=== PATIENT | female | born 1975 | race Native Hawaiian/Other Pacific Islander ===

== ENCOUNTER 2018-09-18 09:42 | Outpatient (CLI) | payer OTHER | END 2018-09-18 09:43 | disposition home or self-care (01) | LOC: C.PAT 09:42 | DX: Z01.818 Encounter for other preprocedural examination (principal); D17.0 Benign lipomatous neoplasm of skin and subcutaneous tissue of head, face and neck ==

== ENCOUNTER 2018-10-07 08:03 | Day surgery (SDC) | payer OTHER ==
[2018-09-18 10:03] VITALS: BMI 27.0
[2018-10-07] MEDS ORDERED: Lidocaine Hydrochloride 20 ML INJ ONE (09:49)
[2018-10-07] MEDS ORDERED: Bupivacaine-Epi 0.5%-1:200,000 PF Inj ONE (09:50)
[2018-10-07] MEDS ORDERED: ceFAZolin 1 gm in NS 2 GM/200 ML BAG IVPB ONE (09:50)
[2018-10-07] MEDS ORDERED: Midazolam 2 MG/2 ML VIAL ONE (10:57)
[2018-10-07] MEDS ORDERED: Propofol 10 mg/ml Inj (20 ML) ONE ×3 (11:00→11:41)
[2018-10-07] MEDS ORDERED: ePHEDrine 50 mg/ml Inj ONE (12:01)
[2018-10-07] MEDS ORDERED: HYDROmorphone 0.5 mg/0.5 ml ISec IVP PRN (12:07)
--- NOTE | 2018-10-07 12:08 | PCM.SURG1 ---
Surgeon's Initial Post Op Note - Surgeon's Notes Surgeon: MD Rafa Glass Artist: Elieser PGY3. MS [email or web address] Type of Anesthesia: General Endo (PY) Pre-Operative Diagnosis: Posterior scalp lipoma Operative Findings: Posterior scalp lipoma Post-Operative Diagnosis: Posterior scalp lipoma Operation Performed: Excision of posterior scalp lipoma Specimen/Specimens Removed: Posterior scalp lipoma Estimated Blood Loss: EBL {In ML}: 10 Date of Surgery/Procedure: 10/07/18 Time of Surgery/Procedure: 11:00
[2018-10-07 15:04] VITALS: BP 100/58; PULSE 67; RESP 15; TEMP 97.9; O2SAT 99
--- NOTE | 2018-10-11 03:37 | OP ---
PROCEDURE DATE: 10/07/2018 PREOPERATIVE DIAGNOSES: 1. Large lipoma of the posterior scalp. 2. Extensive redundant skin and subcutaneous tissue of the scalp due to large lipoma. POSTOPERATIVE DIAGNOSES: 1. Large lipoma of the posterior scalp. 2. Extensive redundant skin and subcutaneous tissue of the scalp due to large lipoma. PROCEDURES DONE: 1. Excision of the large lipoma of the scalp and the neck area, approximately 8 x 6 cm in size. 2. Excision of the redundant skin and subcutaneous tissue of the scalp and neck area at the lipoma site, approximately 6 x 4 cm in size. 3. Complex layered closure of the wound of scalp and neck area 6 x 4 x 4 cm in size. ANESTHESIA: General endotracheal tube anesthesia. ESTIMATED BLOOD LOSS: Around 20 mL. DRAIN: None. PATHOLOGY: Large lipoma of the scalp as well redundant skin were sent for the pathology. COMPLICATIONS: None. INTRAOPERATIVE FINDINGS: The patient had a large lipoma of the scalp, approximately 8 x 6 cm in size. DESCRIPTION OF PROCEDURE: On intraoperative steps, this is a 43-year-old female who was diagnosed with large lipoma of the scalp and upper neck area. The patient was consented for the excision, brought to the OR, placed supine on the operating table. After induction of anesthesia, the patient was placed in left lateral position. The scalp area was prepped and draped in a sterile fashion, and local anesthesia was injected. An elliptical incision was made, approximately 6 x 4 cm in size. Upper and lower flap was created. Lateral and medial dissection was done. The superior dissection was done all the way up to the occipital bone, and the lipoma was completely excised superiorly up to the inferiorly, laterally to the medially and whole lipoma was completely excised and it was sent off the table for the pathology. There was a proper hemostasis in each and every part of the procedure. Due to the extensive redundant skin to prevent seroma as well as the fluid collection, the upper and lower flap skin and subcutaneous tissue was excised, and it was sent off the table for the pathology. Now, the wound was closed in multiple layers. The deeper subcu was sutured with the fascia. The upper flap and lower flap were sutured with underlying subcutaneous tissue and one layer of deep subcu with a 2-0 Vicryl, superficial subcu with a 3-0 Vicryl and skin with a 4-0 Monocryl, and dry sterile dressing was applied. The patient tolerated the procedure well. Count of instrument and gauze was correct. There was no apparent complication. The patient was reversed from anesthesia and sent to the postanesthesia care unit in stable condition. Sony Craig MD
== END 2018-10-07 15:08 | disposition home or self-care (01) ==
LOC: C.SDS 08:03
PROVIDERS: ATTEND Surgery Surgical Critical Care
DX: D17.0 Benign lipomatous neoplasm of skin and subcutaneous tissue of head, face and neck (principal)
CPT/HCPCS: 11426; 13121; 88304; J0690; J2250; J2704; J3010